=== PATIENT | male | born 1975 | race Caucasian/White ===

== ENCOUNTER 2020-01-19 12:00 | Outpatient (CLI) | payer BC, SELFPAY | END 2020-01-19 12:30 | disposition home or self-care (01) | LOC: SLB 12:00 → EDSTATUS 01-26 08:00 | PROVIDERS: ATTEND Internal Medicine | DX: Z20.828 Contact with and (suspected) exposure to other viral communicable diseases (principal); K92.1 Melena | CPT/HCPCS: U0003 ==